=== PATIENT | female | born 1970 | race African-American/Black ===

== ENCOUNTER 2016-11-24 15:17 | Emergency (ER) | payer MEDICAID ==
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
== END 2016-11-24 17:56 | disposition home or self-care (01) ==
LOC: CFTX 15:17 → CED 15:17 → CFTX 16:22
DX: S43.401A Unspecified sprain of right shoulder joint, initial encounter (principal); V43.62XA Car passenger injured in collision with other type car in traffic accident, initial encounter; Y92.410 Unspecified street and highway as the place of occurrence of the external cause
CPT/HCPCS: 70450; 72125; 73030; 96372; 99284; J1885